=== PATIENT | male | born 1995 | race African-American/Black ===

== ENCOUNTER 2018-02-15 10:31 | Emergency (ER) | payer SELFPAY ==
[2018-02-15] MEDS: methylPREDNISolone SOD SUCC PF 125 MG/2 ML VIAL. IM (11:09)
[2018-02-15] MEDS: IPRATRPIUM/ALBUTEROL 0.5/2.5MG 3 ML NEBU. NEB (11:32)
[2018-02-15] MEDS: IBUPROFEN 800 MG TABLET. PO (11:55)
[2018-02-15] MEDS: FAMOTIDINE 20 MG TABLET. PO (11:55)
== END 2018-02-15 12:25 | disposition home or self-care (01) ==
LOC: ER 10:31
DX: J20.9 Acute bronchitis, unspecified (principal); F12.10 Cannabis abuse, uncomplicated; Z79.1 Long term (current) use of non-steroidal anti-inflammatories (NSAID); Z79.899 Other long term (current) drug therapy
CPT/HCPCS: 71046; 93005; 94640; 96372; 99284; J2930; J7620

== ENCOUNTER 2018-12-31 16:29 | Emergency (ER) | payer SELFPAY ==
[~2018-12-31] VITALS: Ht 172.7 cm; Wt 88.9 kg
[~2018-12-31 16:29] MED LIST: ALBU2.5V8 INH; AZIT250T6 PO; PRED-220 PO
[2018-12-31 16:55] VITALS: BP 125/76
[2018-12-31] MEDS ORDERED: CYCL10TA2 PO (17:26)
[2018-12-31] MEDS ORDERED: RANI-376 PO (17:26)
--- NOTE | 2018-12-31 17:26 | PHYS DOC ---
Past Medical History Past Medical History: No Pertinent History Past Surgical History: No Surgical History Alcohol Use: None Drug Use: Marijuana Adult General Chief Complaint Chief Complaint: CHEST WALL PAIN [facility] HPI Patient is a 23 year old male who presents with playing of chest pain. Patient complaining of substernal chest pain for the last 4 days after started lifting heavy weight and doing exercise patient said the pain getting worse with taking a deep breath and movement and today he had right-sided chest pain as a sharp pain. Patient rated his pain as a mild mild pain without radiation, shortness of breath, dizziness, palpitation, nausea and vomiting, fever and chills, cough and congestion. Patient does not have cardiac risk factor except for smoking. Patient also complaining of episodes of epigastric discomfort feeling for the last 3 or 4 weeks when he is waking up in the morning that getting better after eating. She complaining of 4-5 episodes of diarrhea a day for the same time. Review of Systems Review of Systems Constitutional: Denies fever or chills [] Eyes: Denies change in visual acuity, redness, or eye pain [] HENT: Denies nasal congestion or sore throat [] Respiratory: Denies cough or shortness of breath [] Cardiovascular: No additional information not addressed in HPI [] GI: Reports abdominal pain, denies nausea, vomiting, bloody stools or diarrhea [ ] : Denies dysuria or hematuria [] Musculoskeletal: Denies back pain or joint pain [] Integument: Denies rash or skin lesions [] Neurologic: Denies headache, focal weakness or sensory changes [] Endocrine: Denies polyuria or polydipsia [] All other systems were reviewed and found to be within normal limits, except as documented in this note. Allergies Allergies Allergies Coded Allergies Type Severity Reaction Last Updated Verified No Known Drug Allergies 02/15/18 No Physical Exam Physical Exam Constitutional: Well developed, well nourished, mild distress, non-toxic appearance. [] HENT: Normocephalic, atraumatic Eyes: PERRLA, EOMI, conjunctiva normal, no discharge. [] Neck: Normal range of motion, no tenderness, supple, no stridor. [] Cardiovascular:Heart rate regular rhythm, no murmur [] Lungs & Thorax: Bilateral breath sounds clear to auscultation, reproducible chest wall pain Abdomen: Bowel sounds normal, soft, no tenderness, no masses, no pulsatile masses. [] Skin: Warm, dry, no erythema, no rash. [] Back: No tenderness, no CVA tenderness. [] Extremities: No tenderness, no cyanosis, no clubbing, ROM intact, no edema. [] Neurologic: Alert and oriented X 3, normal motor function, normal sensory function, no focal deficits noted. [] Psychologic: Affect normal, judgement normal, mood normal. [] EKG EKG EKG interpreted by me. EKG at 1701 showed normal sinus rhythm at rate of 77, right huerta axis, no acute ST and T-wave abnormalities. Radiology/Procedures Radiology/Procedures [] Course & Med Decision Making Course & Med Decision Making discharge: I've spoken with the patient and/or caregivers. I've explained the patient's condition, diagnosis and treatment plan based on information available to me at this time. I've answered the patient's and/or caregivers questions and addressed any concerns. The patient and/or caregivers have a good understanding the patient's diagnosis, condition and treatment plan as can be expected at this point. Vital signs have been stabilized. The patient's condition is stable for discharge from the emergency department. The patient will pursue further outpatient evaluation with her primary care provider or other designated consulting physician as outlined in the discharge instructions. Patient and/or caregivers are agreeable to this plan of care and follow-up instructions have been explained in detail. The patient and/or caregivers have received these instructions in written format and expressed understanding of these discharge instructions. The patient and her caregivers are aware that if any significant change in condition or worsening of symptoms should prompt him to immediately return to this of the closest emergency department. If an emergent department is not readily available I would encourage him to call 911. Justin Disclaimer Justin Disclaimer This electronic medical record was generated, in whole or in part, using a voice recognition dictation system. Departure Departure Impression: Primary Impression: Musculoskeletal chest pain Additional Impressions: GERD (gastroesophageal reflux disease) Tobacco abuse Tobacco abuse counseling Disposition: HOME, SELF-CARE (at 1720) Condition: STABLE Referrals: NO PCP (PCP) Patient Instructions: Chest Wall Pain, Diet for Gastroesophageal Reflux Disease , Adult, Gastroesophageal Reflux Disease, Adult, Musculoskeletal Pain, Smoking Cessation, Tips For Success Additional Instructions: Drink plenty of liquids Follow-up with your primary care physician in 3-5 days Return to ER if not getting better Apply ice on affected area Scripts Ranitidine Hcl (ZANTAC) 150 Mg Tablet 1 TAB PO BID for dyspepsia, #30 TAB 0 Refills Prov: JÚNIOR LAZCANO MD 12/31/18 Cyclobenzaprine Hcl (CYCLOBENZAPRINE HCL) 10 Mg Tablet 1 TAB PO TID for muscle pain, #30 TAB Prov: JÚNIOR LAZCANO MD 12/31/18 Problem Qualifiers Additional Impressions: GERD (gastroesophageal reflux disease) Esophagitis presence: esophagitis presence not specified Qualified Codes: K21.9 - Gastro-esophageal reflux disease without esophagitis JÚNIOR LAZCANO MD Dec 31, 2018 17:26
--- NOTE | 2019-01-01 05:51 | EKG ---
[facility] [address] [place] [address] Test Date: 2018-12-31 Test Time: 17:01:36 Pat Name: BRENNON HALL Department: Room: Gender: Male [employer] Developer: : 1995 Requested By: JÚNIOR LAZCANO Order Number: [id number] Reading MD: Win William MD Measurements Intervals [place] Rate: 77 P: 52 IA: 162 QRS: 95 QRSD: 92 T: 16 QT: 328 QTc: 372 Interpretive Statements SINUS RHYTHM RIGHTWARD AXIS, MAY BE NORMAL VARIANT DUE TO AGE Electronically Signed On 01-04-2019 14:11:29 CDT by Win William MD
== END 2018-12-31 17:44 | disposition home or self-care (01) ==
LOC: ER 16:29
DX: R07.2 Precordial pain (principal); K21.9 Gastro-esophageal reflux disease without esophagitis; R19.7 Diarrhea, unspecified; R10.13 Epigastric pain; Z71.6 Tobacco abuse counseling
CPT/HCPCS: 93005; 99283

== ENCOUNTER 2019-07-20 23:19 | Emergency (ER) | payer SELFPAY ==
[~2019-07-20] VITALS: Ht 172.7 cm; Wt 93.9 kg
[~2019-07-20 23:19] MED LIST changes: +CYCL10TA2 PO; +RANI-376 PO
--- NOTE | 2019-07-21 02:40 | PHYS DOC ---
Past Medical History Past Medical History: No Pertinent History Past Surgical History: No Surgical History Alcohol Use: Rarely Drug Use: Marijuana Adult General Chief Complaint Chief Complaint: CHEST PAIN HPI HPI Patient is a 24 year old male who presents with complaint of chest tightness. The patient states his symptoms started approximately 20 minutes prior to arrival. The patient states that he was at rest. Symptoms started after coughing a couple times. Notes pain along the right side of his chest that fee ls like a tightness. Patient states that he felt sick to his stomach and had one episode of vomiting but since then has had no further nausea or vomiting. Denies any significant past medical history. Denies any ingestion of possible spoiled food or any other substances that could've triggered his symptoms. Denies any shortness of breath, cough, or fever. Has not taking medications for symptoms. Review of Systems Review of Systems Constitutional: Denies fever or chills [] Eyes: Denies change in visual acuity, redness, or eye pain [] HENT: Denies nasal congestion or sore throat [] Respiratory: Denies cough or shortness of breath [] Cardiovascular: Chest pain[] GI: Vomiting, denies abdominal pain, bloody stools or diarrhea [] : Denies dysuria or hematuria [] Musculoskeletal: Denies back pain or joint pain [] Integument: Denies rash or skin lesions [] Neurologic: Denies headache, focal weakness or sensory changes [] Endocrine: Denies polyuria or polydipsia [] All other systems were reviewed and found to be within normal limits, except as documented in this note. Current Medications Current Medications Current Medications Medications (Trade) Dose Ordered Sig/[facility] Start Time Stop Time Status Last Admin Dose Admin Ketorolac Tromethamine (Toradol 30mg Vial) 30 mg 1X ONCE 07/21/19 03:30 07/21/19 03:31 DC 07/21/19 03:31 30 MG Allergies Allergies Allergies Coded Allergies Type Severity Reaction Last Updated Verified No Known Drug Allergies 02/15/18 No Physical Exam Physical Exam Constitutional: Well developed, well nourished, no acute distress, non-toxic appearance. [] HENT: Normocephalic, atraumatic, bilateral external ears normal, oropharynx moist, no oral exudates, nose normal. [] Eyes: PERRLA, EOMI, conjunctiva normal, no discharge. [] Neck: Normal range of motion, no tenderness, supple, no stridor. [] Cardiovascular:Heart rate regular rhythm, no murmur [] Lungs & Thorax: Bilateral breath sounds clear to auscultation [] Abdomen: Bowel sounds normal, soft, no tenderness, no masses, no pulsatile masses. [] Skin: Warm, dry, no erythema, no rash. [] Back: No tenderness, no CVA tenderness. [] Extremities: No tenderness, no cyanosis, no clubbing, ROM intact, no edema. [] Neurologic: Alert and oriented X 3, normal motor function, normal sensory function, no focal deficits noted. [] Current Patient Data Vital Signs Vital Signs Date Time Temp Pulse Resp B/P (MAP) Pulse Ox O2 Delivery O2 Flow Rate FiO2 07/21/19 02:20 72 19 109/67 (81) 97 Room Air 07/21/19 01:01 97.5 97.5 Lab Values Laboratory Tests Test 07/21/19 01:27 White Blood Count 7.0 x10^3/uL (4.0-11.0) Red Blood Count 4.64 x10^6/uL (4.30-5.70) Hemoglobin 13.9 g/dL (13.0-17.5) Hematocrit 42.0 % (39.0-53.0) Mean Corpuscular Volume 91 fL (79-100) Mean Corpuscular Hemoglobin 30 pg (25-35) Mean Corpuscular Hemoglobin Concent 33 g/dL (31-37) Red Cell Distribution Width 13.9 % (11.5-14.5) Platelet Count 245 x10^3/uL (140-400) Neutrophils (%) (Auto) 40 % (31-73) Lymphocytes (%) (Auto) 48 % (24-48) Monocytes (%) (Auto) 7 % (0-9) Eosinophils (%) (Auto) 4 % (0-3) H Basophils (%) (Auto) 0 % (0-3) Neutrophils # (Auto) 2.8 x10^3/uL (1.8-7.7) Lymphocytes # (Auto) 3.4 x10^3/uL (1.0-4.8) Monocytes # (Auto) 0.5 x10^3/uL (0.0-1.1) Eosinophils # (Auto) 0.3 x10^3/uL (0.0-0.7) Basophils # (Auto) 0.0 x10^3/uL (0.0-0.2) D-Dimer (Erica) < 0.27 ug/mlFEU Sodium Level 144 mmol/L (136-145) Potassium Level 4.2 mmol/L (3.5-5.1) Chloride Level 107 mmol/L (98-107) Carbon Dioxide Level 29 mmol/L (21-32) Anion Gap 8 (6-14) Blood Urea Nitrogen 13 mg/dL (8-26) Creatinine 0.9 mg/dL (0.7-1.3) Estimated GFR (Cockcroft-Gault) 125.4 Glucose Level 90 mg/dL (70-99) Calcium Level 9.2 mg/dL (8.5-10.1) Magnesium Level 1.9 mg/dL (1.8-2.4) Laboratory Tests 07/21/19 01:27 Laboratory Tests 07/21/19 01:27 EKG EKG Interpreted by me: Heart rate 76, sinus rhythm, rightward axis, no acute ST/T- wave abnormalities present[] Radiology/Procedures Radiology/Procedures [facility] [address] [place], [place] [id number] IMAGING REPORT Signed PATIENT: BRENNON HALL ACCOUNT: [id number] : 1995 LOCATION: ER AGE: 24 SEX: M EXAM STATUS: REG ER ORD. PHYSICIAN: JAMES OLIVERA MD REASON: chest pain PROCEDURE: CHEST PA & LATERAL Chest PA and lateral: Reason for examination: Chest pain. Comparison is made to previous study dated 02/15/2018. The heart size is normal. Mediastinum is unremarkable. Lung fernando are clear except for a couple of calcified granuloma. No acute bony abnormalities are seen. Impression: No acute cardiopulmonary disease. Electronically signed by: Abril Thornton MD (07/21/2019 3:29 AM) [facility] DICTATED and SIGNED BY: ABRIL THORNTON MD DATE: 07/21/19 0329 Course & Med Decision Making Course & Med Decision Making Pertinent Labs and Imaging studies reviewed. (See chart for details) EKG shows no evidence of acute ischemia. Chest x-ray and blood work unremarkable. D-dimer negative. Patient is at low risk for myocardial infarction. Patient at this time states that his symptoms have resolved. Was treated with Toradol in the emergency department. I suspect patient is experiencing pain secondary to chest wall etiology. Prescribed ibuprofen for continued outpatient treatment. Advised follow-up with primary doctor in 3-4 days for reevaluation and return to the emergency department for any worsening symptoms. Patient voiced understanding and in agreement with treatment plan.[] Dragon Disclaimer Dragon Disclaimer This electronic medical record was generated, in whole or in part, using a voice recognition dictation system. Departure Departure Impression: Primary Impression: Chest pain Disposition: HOME, SELF-CARE Condition: IMPROVED Referrals: NO PCP (PCP) DEUCE FORTE MD Patient Instructions: Chest Pain (Nonspecific) Additional Instructions: Follow-up with your primary doctor in the next 3-4 days for reevaluation. Retu rn to the emergency department for any worsening symptoms. Scripts Ibuprofen (IBUPROFEN) 600 Mg Tablet 600 MG PO Q6HRS PRN for INFLAMMATION, #30 TAB Prov: JAMES OLIVERA MD 07/21/19 Problem Qualifiers Primary Impression: Chest pain Chest pain type: unspecified Qualified Codes: R07.9 - Chest pain, unspecified JAMES OLIVERA MD Jul 21, 2019 02:40
[2019-07-21 02:50] LABS: BASO % 0 % (0-3); EOS # 0.3 x10^3/uL (0.0-0.7); EOS % 4 % (0-3); HEMOGLOBIN 13.9 g/dL (13.0-17.5); LYMPH # 3.4 x10^3/uL (1.0-4.8); LYMPH % 48 % (24-48); MEAN CORPUSCULAR HEMOGLOBIN 30 pg (25-35); MEAN CORPUSCULAR HGB CONC 33 g/dL (31-37); MEAN CORPUSCULAR VOLUME 91 fL (79-100); MONO # 0.5 x10^3/uL (0.0-1.1); MONO % 7 % (0-9); NEUT # 2.8 x10^3/uL (1.8-7.7); NEUT % 40 % (31-73); PLATELET COUNT 245 x10^3/uL (140-400); RED BLOOD COUNT 4.64 x10^6/uL (4.30-5.70); RED CELL DISTRIBUTION WIDTH 13.9 % (11.5-14.5)
[2019-07-21 03:03] LABS: CALCIUM 9.2 mg/dL (8.5-10.1); CREATININE 0.9 mg/dL (0.7-1.3); GFR 125.4; MAGNESIUM 1.9 mg/dL (1.8-2.4); POTASSIUM 4.2 mmol/L (3.5-5.1)
[2019-07-21] MEDS ORDERED: KETOROLAC 30 MG/ML VIAL. IVP ONE (03:30)
--- NOTE | 2019-07-21 03:32 | RAD ---
Chest PA and lateral: Reason for examination: Chest pain. Comparison is made to previous study dated 02/15/2018. The heart size is normal. Mediastinum is unremarkable. Lung fernando are clear except for a couple of calcified granuloma. No acute bony abnormalities are seen. Impression: No acute cardiopulmonary disease. Electronically signed by: Abril Moss MD (07/21/2019 3:29 AM) [facility]
[2019-07-21] MEDS ORDERED: IBUP-1007 PO (04:09)
[2019-07-21 04:20] VITALS: BP 104/59
--- NOTE | 2019-07-21 06:48 | EKG ---
[facility] [address] [place] [address] Test Date: 2019-07-20 Test Time: 23:28:26 Pat Name: BRENNON HALL Department: Room: Gender: M [employer] Marketing: : 1995 Requested By: JAMES OLIVERA Order Number: [id number] Reading MD: Measurements Intervals [place] Rate: 76 P: 90 MD: 160 QRS: 93 QRSD: 92 T: 57 QT: 326 QTc: 370 Interpretive Statements SINUS RHYTHM RIGHTWARD AXIS QRS(T) CONTOUR ABNORMALITY CONSIDER INFERIOR MYOCARDIAL DAMAGE POSSIBLY ABNORMAL ECG RI6.01 No previous ECG available for comparison
== END 2019-07-21 04:43 | disposition home or self-care (01) ==
LOC: ER 23:19
DX: R07.89 Other chest pain (principal); R05 Cough; R69 Illness, unspecified
CPT/HCPCS: 36415; 71046; 80048; 83735; 85025; 85379; 93005; 96374; 99285; J1885

== ENCOUNTER 2019-10-25 17:06 | Emergency (ER) | payer SELFPAY ==
[~2019-10-25] VITALS: Ht 172.7 cm; Wt 86.3 kg
[~2019-10-25 17:06] MED LIST changes: +IBUP-1007 PO
[2019-10-25 17:47] VITALS: BP 174/82
--- NOTE | 2019-10-25 17:50 | PHYS DOC ---
Past Medical History Past Medical History: No Pertinent History (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 Patient states he used to smoke cigarettes. He states he does smoke marijuana. He denies any pain at this time. He states he last took any TheraFlu at 8:00 this morning. (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 [facility] RECRU[facility]) Allergies Allergies Allergies Coded Allergies Type Severity Reaction Last Updated Verified No Known Drug Allergies 02/15/18 No (JÚNIOR LAZCANO MD) Physical Exam Physical Exam Constitutional: Well developed, well nourished, no acute distress, non-toxic appearance. [] HENT: Normocephalic, atraumatic, bilateral external ears normal, oropharynx moist, no oral exudates, nose normal. Bilateral tympanics red.[] Eyes: PERRLA, EOMI, conjunctiva normal, no discharge. [] Neck: Normal range of motion, no tenderness, supple, no stridor. [] Cardiovascular:Heart rate regular rhythm, no murmur [] Lungs & Thorax: Bilateral breath sounds clear to auscultation [] Abdomen: Bowel sounds normal, soft, no tenderness, no masses, no pulsatile masses. [] Skin: Warm, dry, no erythema, no rash. [] Back: No tenderness, no CVA tenderness. [] Extremities: No tenderness, no cyanosis, no clubbing, ROM intact, no edema. [] Neurologic: Alert and oriented X 3, normal motor function, normal sensory function, no focal deficits noted. [] Psychologic: Affect normal, judgement normal, mood normal. [] ([facility],MOLLY Weinberg [employer]IV[employer]ITY RELATIONS RECRUITER) Current Patient Data Vital Signs Vital Signs Date Time Temp Pulse Resp B/P (MAP) Pulse Ox O2 Delivery O2 Flow Rate FiO2 10/25/19 17:47 98.3 90 20 174/82 (112) 100 Room Air 98.3 (JÚNIOR LAZCANO MD) Lab Values Laboratory Tests Test 10/25/19 17:45 Influenza Type A Antigen Negative (NEGATIVE) Influenza Type B Antigen Negative (NEGATIVE) (JÚNIOR LAZCANO MD) Lab Values Laboratory Tests Test 10/25/19 17:45 Influenza Type A Antigen Negative (NEGATIVE) Influenza Type B Antigen Negative (NEGATIVE) (MOLLY SILVER APRN) EKG EKG [] (MOLLY SILVER APRN) Radiology/Procedures Radiology/Procedures [] (MOLLY SILVER APRN) Course & Med Decision Making Course & Med Decision Making Lungs are clear to auscultation all lobes. Ambulatory with a steady gait. Skin pink warm and dry. Mucous membranes moist. Vital signs within normal limits. Alert and oriented. bilateral tympanic red. Throat is red and there is no swelling or exudates. Patient denies chest pain, shortness of air, nausea, vomiting, diarrhea, headache, dizziness, syncope, weakness, visual changes. (MOLLY SILVER APRN) Course & Med Decision Making I was not involved in the care of this patient after 1800 on 10/25/2019 (JÚNIOR LAZCANO MD) Dragon Disclaimer Dragon Disclaimer This electronic medical record was generated, in whole or in part, using a voice recognition dictation system. (MOLLY SILVER APRN) Departure Departure Impression: Primary Impression: Otitis media Disposition: 01 HOME, SELF-CARE Condition: STABLE Referrals: NO PCP (PCP) Patient Instructions: Otitis Media, Adult Additional Instructions: Take antibiotic until it is gone. Take Ibuprofen or Tylenol to help our pain and fever. Drink plenty of fluids. Follow up with a primary care provider. Scripts Amoxicillin (AMOXICILLIN) 500 Mg Capsule 1 CAP PO BID, #20 CAP Prov: MOLLY SILVER APRN 10/25/19 Problem Qualifiers Primary Impression: Otitis media Otitis media type: suppurative Chronicity: acute Laterality: bilateral Recurrence: non-recurrent Spontaneous tympanic membrane rupture: without spontaneous rupture Qualified Codes: H66.003 - Acute suppurative otitis media without spontaneous rupture of ear drum, bilateral ANNIUS,MOLLY Weinberg APRN Oct 25, 2019 17:50 JÚNIOR LAZCANO MD Oct 26, 2019 13:50
[2019-10-25 18:42] LABS: INFLUENZA A PATIENT NEGATIVE (NEGATIVE); INFLUENZA B PATIENT NEGATIVE (NEGATIVE)
[2019-10-25] MEDS ORDERED: AMOX500C PO (18:54)
== END 2019-10-25 19:04 | disposition home or self-care (01) ==
LOC: ER 17:06
DX: H66.003 Acute suppurative otitis media without spontaneous rupture of ear drum, bilateral (principal); R50.9 Fever, unspecified; R05 Cough; R09.81 Nasal congestion; F12.90 Cannabis use, unspecified, uncomplicated; F17.210 Nicotine dependence, cigarettes, uncomplicated
CPT/HCPCS: 87804; 99284